=== PATIENT | male | born 1935 | race Caucasian/White ===

== ENCOUNTER 2021-05-31 10:24 | Emergency (ER) | payer MEDICARE, SELFPAY ==
--- NOTE | ~2021-05-31 | CT_ITS ---
EXAMINATION: CT HEAD WITHOUT CONTRAST CLINICAL INFORMATION: Fall on Eliquis. Head injury. COMPARISON: CT brain 04/23/2018. TECHNIQUE: Contiguous axial imaging was performed from the skull base to vertex without intravenous administration of contrast. This CT examination was performed using dose optimization techniques as appropriate, variously including the following: *Automated exposure control *Adjustment of mA and/or kV according to patient size (this includes techniques or standardized protocols for targeted exams where dose is matched to indication/reason for exam; i.e. extremities or head) *Use of iterative reconstruction technique DLP: 635 mGy-cm FINDINGS: There is no evidence of acute intracranial hemorrhage or territorial infarction. No abnormal mass effect or midline shift is seen. Shankar to white matter differentiation is well preserved. No extra-axial fluid collections are identified. The ventricles are normal in size. There is no abnormal attenuation within the brain parenchyma. There is a left frontal scalp hematoma without any underlying calvarial fracture. The hematoma is 9 mm thick and approximately 6.13 cm wide. The mastoid air cells and visualized portions of the paranasal sinuses are well aerated. CT/CT head/brain wo con IMPRESSION: No acute intracranial process seen. There is mild cerebral volume loss. There is a left frontal scalp hematoma without calvarial fracture.
[2021-05-31 11:18] VITALS: BP 159/85; PULSE 88; RESP 16; O2SAT 98; BMI 26.2
--- NOTE | 2021-05-31 11:41 | ECG_ITS ---
Test Reason : FALL Blood Pressure : / mmHG Vent. Rate : 081 BPM Atrial Rate : 117 BPM P-R Int : 000 ms QRS Dur : 084 ms QT Int : 378 ms P-R-T Axes : 000 -10 -31 degrees QTc Int : 439 ms Atrial fibrillation with premature ventricular or aberrantly conducted complexes Septal infarct , age undetermined Abnormal ECG When compared with ECG of 23-APR-2018 22:41, No significant change was found Referred By: Dago Lennon Electronically Signed By:Naga Camacho
[2021-05-31 11:44] VITALS: BP 159/85; PULSE 83; RESP 18; O2SAT 98
[2021-05-31] MEDS: Lidocaine HCl 2% PF/Epi 1:200 20 ML VIAL INFILTRATI (11:50)
[2021-05-31 12:16] LABS: MANUAL DIFF FLAG NO
[2021-05-31 12:20] LABS: Basophils Percent Auto 0.4 % (0-2); Eosinophils Percent Auto 0.1 % (0-4); Hematocrit 39.4 % (42-52); Imm Gran Abs Auto 0.03 X10*3/uL (0.00-0.03); Imm Gran Pct Auto 0.4 % (0.0-0.4); Lymphocytes Absolute Auto 0.4 X10*3/uL (1.2-4.9); Lymphocytes Percent Auto 4.5 % (20-40); Mean Corpuscular Hemoglobin 31.2 pg (27.0-33.0); Mean Corpuscular Volume 94.5 fL (80-98); Mean Platelet Volume 9.8 fL (9.4-12.4); Monocytes Absolute Auto 0.4 X10*3/uL (0.1-1.2); Monocytes Percent Auto 5.1 % (2-11); Neutrophils Absolute Auto 7.4 X10*3/uL (2.0-8.3); Neutrophils Percent Auto 89.5 % (45-73); Platelet Count 180 X10*3/uL (160-400); Red Blood Count 4.17 X10*6/uL (4.60-5.80); Red Cell Distribution Width 13.4 % (11.0-16.0); White Blood Count 8.2 X10*3/uL (4.8-10.8)
[2021-05-31 12:25] LABS: INTERNATIONAL NORM RATIO 1.1 (0.9-1.1); Prothrombin Time 12.7 SEC (9.9-13.0)
[2021-05-31 12:28] LABS: Partial Thromboplastin Time 35.5 SEC (24.1-38.0)
[2021-05-31 12:49] LABS: Alanine Aminotransferase 10 U/L (0-40); Albumin Level 3.6 g/dL (3.5-5.0); Alkaline Phosphatase 56 U/L (39-117); Anion Gap 13 (12-20); Aspartate Amino Transferase 19 U/L (5-37); Bilirubin Total 1.1 mg/dL (0.0-1.0); Blood Urea Nitrogen 25 mg/dL (9-16); Calcium 8.6 mg/dL (8.4-10.2); Carbon Dioxide 28 mmol/L (22-29); Chloride 106 mmol/L (96-108); Creatinine Clr Calc Pharmacy 44.6; Estimated Glomerular Filt Rate > 60; Glucose Random 134 mg/dL (60-115); Potassium 3.5 mmol/L (3.3-5.1); Sodium 143 mmol/L (135-145); Total Protein 6.5 g/dL (6.5-8.0)
--- NOTE | 2021-05-31 14:49 | ED_ITS ---
HPI - General Adult General Chief complaint: Fall Stated complaint: fall w/ head lac Time Seen by Provider: 05/31/21 10:37 Source: patient and family (Son) Mode of arrival: EMS Limitations: no limitations History of Present Illness HPI narrative: 86-year-old male who presents emergency department for evaluation of injuries from a fall that occurred at home. The information comes from the patient and the patient's son. The patient was walking down a hallway at home, using his cane. The patient lost his balance and struck the left side of his face and his nose on a picture frame. Patient did fall to the floor but had no loss of consciousness. The son heard the fall and found the patient on the floor. The patient is on Eliquis for atrial fibrillation. Patient had a laceration to his left eyebrow which was bleeding extensively at home. Patient was placed in a bulky pressure dressing by the paramedics the patient did bleed through his dressing in the emergency department. The patient had no complaints at the time of my interview. He denied headache, neck pain, chest pain, abdominal pain, back pain, extremity pain. He states that he was not ill prior to his fall at home. Related Data Allergies Allergy/AdvReac Type Severity Reaction Status Date / Time acetaminophen [From PERCOCET] AdvReac Unknown NAUSEA/VOMI Unverified 07/12/20 15:24 TING oxycodone [From PERCOCET] AdvReac Unknown NAUSEA/VOMI Unverified 07/12/20 15:24 TING Review of Systems Review of Systems: Yes all other systems are reviewed and are negative PMFSH Social History Social History Advance Directives: No Advance Directives Information Provided: Yes Advance Directives on File: No Physical Exam Vital Signs: Vital Signs: Last Vital Signs Temp 97.7 F 05/31/21 16:23 Pulse 82 05/31/21 16:23 Resp 20 05/31/21 16:23 BP 151/90 H 05/31/21 16:23 Pulse Ox 99 05/31/21 16:23 Body Mass Index 26.2 Const: Other: Very pleasant and cooperative elderly male, awake alert, patient has a bulky hand dressing covering a wound on his left hand, the patient has blood through the dressing. HENMT: Other: 3.0 cm elliptical laceration to the left eyebrow, he the laceration goes into the muscle layer, the patient is actively venous bleeding with no pulsatile bleeding noted Ears: external ears normal General nose exam: Other nasal findings present (2.5 cm C-shaped laceration to the nasal bridge, full skin thickness) Face and sinus: Yes normal facial exam Mouth: Normal oral and palatal mucosa present Throat: Yes posterior oropharynx normal Eyes: General: appearance normal, both eyes and all related structures Pupils: Equal, round and reactive pupils present Neck: Neck: Yes normal visual inspection, Yes no lymphadenopathy, Yes trachea midline and Yes supple Chest: Chest palpation & inspection: normal inspection of the chest and normal palpation of entire chest wall Resp: Effort & Inspection: normal respiratory effort and able to speak in complete sentences Auscultation: clear to auscultation bilaterally Cardio: Rate: regular rate Rhythm: regular rhythm Heart sounds: S1 norm al heart sound present, S2 normal heart sound present and no murmurs GI: Inspection: Yes normal to inspection Palpation (GI): Soft to palpation, nontender and no guarding Auscultation: normal bowel sounds : General: Yes no CVA tenderness Back/Spine/Pelvis: Back: no CVA tenderness Skin: General skin exam: no rashes or lesions noted Neuro: Cranial nerves: Yes CN's II-XII intact bilaterally and Yes Equal, round and reactive pupils present Cognition (Neuro): normal cognition Motor exam (neuro): 5/5 motor strength present throughout Extrem: General: Yes normal to inspection Psych: Appearance: grossly normal Speech and movement: Normal speech and movement present Affect: normal affect Attitude: cooperative Thought process: Normal thought process present Thought content: Normal thought content present Course Course Course Narrative: 86-year-old male who presents emergency department for evaluation of trip and fall with laceration to the left eyebrow and nasal bridge, the patient had significant bleeding from the left eyebrow laceration secondary to venous bleeding. This was exacerbated by the fact that the patient is taking Eliquis. I was able to stop the bleeding with IV lidocaine and with internal and external sutures to the laceration. Patient's nasal bridge laceration was repaired as well. CT scan of the head revealed no acute fracture or bleed. Patient's H&H was 13 and 39.4, there is no baseline H&H in the record. Coags were normal. Comprehensive metabolic panel revealed no significant abnormalities. The patient was discharged home in the care of his son. The patient was given verbal and printed instructions prior to discharge. The patient was advised to follow-up with his PCP in 2 days and to return to the emergency department if his symptoms get worse or if he develops any new symptoms that are concerning to him. Procedures Procedure Narrative Procedure Narrative: Laceration repairs: Laceration 1: 3.0 cm left eyebrow. The patient gave me informed verbal consent to repair the laceration. The laceration demonstrated active venous bleeding which was difficult to control secondary to Eliquis therapy. The laceration was prepped with Betadine. The laceration was then anesthetized with 5 cc of 2% lidocaine with epinephrine. I placed five 4.0 Vicryl sutures in the muscular layer in order to close the wound tightly, this significantly stop the bleeding. At in place seven 3.0 nylon sutures. The patient had no significant control the bleeding with this treatment. Bacitracin and pressure dressing was applied to the wound. Laceration 2: 2.5 cm C-shaped laceration to the nasal bridge. The patient giving informed verbal consent to repair laceration. The laceration was prepped with Betadine and anesthetized with 2% lidocaine with epinephrine. The wound was closed in 1 layer using 5.0 Vicryl Rapide sutures, total of 5 sutures were used to close the wound. Patient tolerated the procedure well. Medical Decision Making Lab Data Result diagrams: 05/31/21 12:06 05/31/21 12:06 Labs: Lab Results 05/31/21 05/31/21 05/31/21 Range/Units 12:06 12:06 12:06 WBC 8.2 (4.8-10.8) X10*3/uL RBC 4.17 L (4.60-5.80) X10*6/uL Hgb 13.0 L (14.0-18.0) g/dl Hct 39.4 L (42-52) % MCV 94.5 (80-98) fL MCH 31.2 (27.0-33.0) pg MCHC 33.0 (31.0-36.0) g/dl RDW 13.4 (11.0-16.0) % Plt Count 180 (160-400) X10*3/uL MPV 9.8 (9.4-12.4) fL Immature Gran % (Auto) 0.4 (0.0-0.4) % Neut % (Auto) 89.5 H (45-73) % Lymph % (Auto) 4.5 L (20-40) % [place] % (Auto) 5.1 (2-11) % Eos % (Auto) 0.1 (0-4) % Baso % (Auto) 0.4 (0-2) % Lymph # (Auto) 0.4 L (1.2-4.9) X10*3/uL [place] # (Auto) 0.4 (0.1-1.2) X10*3/uL Eos # (Auto) 0.0 (0.0-0.4) X10*3/uL Baso # (Auto) 0.0 (0.0-0.2) X10*3/uL Abs Immat Gran (auto) 0.03 (0.00-0.03) X10*3/uL Absolute Neuts (auto) 7.4 (2.0-8.3) X10*3/uL Absolute Nucleated RBC 0.000 (0.0-0.012) X10*3/uL Nucleated RBC % (auto) 0.0 (0.0-0.2) /100WBC PT 12.7 (9.9-13.0) SEC INR 1.1 (0.9-1.1) APTT 35.5 (24.1-38.0) SEC Sodium 143 (135-145) mmol/L Potassium 3.5 (3.3-5.1) mmol/L Chloride 106 (96-108) mmol/L Carbon Dioxide 28 (22-29) mmol/L Anion Gap 13 (12-20) BUN 25 H (9-16) mg/dL Creatinine 1.15 (0.5-1.4) mg/dL Estim Creat Clear Calc 44.6 Estimated GFR > 60 Random Glucose 134 H (60-115) mg/dL Calcium 8.6 (8.4-10.2) mg/dL Total Bilirubin 1.1 H (0.0-1.0) mg/dL AST 19 (5-37) U/L ALT 10 (0-40) U/L Alkaline Phosphatase 56 (39-117) U/L Total Protein 6.5 (6.5-8.0) g/dL Albumin 3.6 (3.5-5.0) g/dL Discharge Plan Discharge Clinical Impression: Fall, Head injury, Complex laceration of face, Laceration of nose Patient Disposition: Home, Self-Care Instructions: Laceration (ED), Head Injury (ED) Additional Instructions: The CT scan of your brain was normal, there is no fracture/broken bones or bleeding in your brain. Your blood work was unremarkable. The laceration of her left eyebrow was repaired with 5 internal stitches in 7 external stitches. The external stitches need to be removed by your doctor in 7-10 days. Apply bacitracin twice a day to this laceration and keep it covered with gauze, try to put pressure on this wound to help stop recurrence of bleeding. Your nose laceration was repaired with 5 Vicryl Rapide sutures. These are dissolvable sutures that should dissolved in 5-7 days. Apply bacitracin twice a day to this wound as well. Take Tylenol (acetaminophen) 500 mg pills, 2 pills every 4 to 6 hours as needed for pain. Follow-up with your doctor in 2 days. Please return to the emergency department if your symptoms get worse or if you develop any symptoms that are concerning to you. Interventions: ED Discharge Assessment Last Done: 05/31/21 17:00 Discharge Date/Time: 05/31/21 17:05
[2021-05-31] MEDS: Acetaminophen 325 MG TABLET 975 MG PO (14:57)
[2021-05-31 16:23] VITALS: BP 151/90; PULSE 82; RESP 20; TEMP 36.5; O2SAT 99
== END 2021-05-31 17:05 | disposition home or self-care (01) ==
PROVIDERS: Emergency Provider Emergency Medicine Emergency Medical Services; PCP Internal Medicine
DX: S01.112A Laceration without foreign body of left eyelid and periocular area, initial encounter (principal); S01.21XA Laceration without foreign body of nose, initial encounter; I48.91 Unspecified atrial fibrillation; Z79.01 Long term (current) use of anticoagulants; W18.30XA Fall on same level, unspecified, initial encounter; Y93.01 Activity, walking, marching and hiking; Y92.9 Unspecified place or not applicable; Y99.9 Unspecified external cause status
CPT/HCPCS: 12011; 12052; 36415; 70450; 80053; 85025; 85610; 85730; 93005; 99284

== ENCOUNTER 2022-07-30 00:18 | Inpatient (IN) | payer MEDICARE, SELFPAY ==
[2022-07-30] VITALS (11 sets, daily range): BP systolic 135–180; BP diastolic 90–120; PULSE 79–110; RESP 12–20; TEMP 36.2–37.1; O2SAT 93–97; BMI 24.8
--- NOTE | ~2022-07-30 | XR_ITS ---
EXAMINATION: XR CHEST CLINICAL INFORMATION: Dyspnea COMPARISON: 04/23/2018 TECHNIQUE: Frontal view of the chest was obtained. FINDINGS: Redemonstrated left-sided pacemaker lead tip overlying the right ventricle. Lung volumes are symmetric. Central vasculature appears slightly increased in prominence from prior. Mild patchy bibasilar airspace opacities. Small left pleural effusion is noted. Possible trace right pleural effusion. No evidence of pneumothorax. Cardiac silhouette appears mildly enlarged. Calcification is present at the aortic arch. No acute osseous findings are seen. XR/XR chest 1V IMPRESSION: Finding suggestive of developing vascular congestion. Small left pleural effusion. Mild bibasilar opacities could be due to atelectasis or developing consolidation in this setting.
--- NOTE | 2022-07-30 00:28 | ECG_ITS ---
Test Reason : SOB Blood Pressure : / mmHG Vent. Rate : 101 BPM Atrial Rate : 000 BPM P-R Int : 000 ms QRS Dur : 098 ms QT Int : 400 ms P-R-T Axes : 000 -17 -42 degrees QTc Int : 518 ms Atrial fibrillation with rapid ventricular response with premature ventricular or aberrantly conducted complexes T wave abnormality, consider lateral ischemia Abnormal ECG When compared with ECG of 31-MAY-2021 11:50, T wave inversion no longer evident in Inferior leads Nonspecific T wave abnormality no longer evident in Anterior leads T wave inversion now evident in Lateral leads QT has lengthened Heart rate has increased Referred By: Bryant Ayala Electronically Signed By:HIMANSHU TORO
--- NOTE | 2022-07-30 00:40 | ED.SOB ---
HPI - SOB/Dyspnea General Chief Complaint: Dyspnea Stated Complaint: sob Time Seen by Provider: 07/30/22 00:31 Source: family and EMS Mode of arrival: EMS Limitations: altered mental status History of Present Illness HPI Narrative: Patient history of dementia CHF atrial fibrillation Eliquis and furosemide, hypertension, hyperlipidemia status post pacemaker placement brought by EMS for increased shortness of breath usually patient gets short of breath and gets better but this time patient continued to be short of breath saw saturating 91% at room air and 96% on 2 L patient is not on oxygen at home no chest pain or palpitation when EMS arrived patient heart rate was in 200 range no chest pain Related Data Home Medications Medication Instructions Recorded Confirmed apixaban 5 mg tablet (Eliquis) 1 tab PO BID 07/30/22 07/30/22 aspirin 1 tab PO 1XD 07/30/22 07/30/22 atenolol 25 mg tablet 1 tab PO BID 07/30/22 07/30/22 ferrous gluconate 324 mg (38 mg 1 tab PO Q OTHER DAY 07/30/22 07/30/22 iron) tablet finasteride 5 mg tablet 1 tab PO DAILY 07/30/22 07/30/22 furosemide 40 mg tablet 1 tab PO 3XW 07/30/22 07/30/22 rosuvastatin 5 mg tablet 1 tab PO DAILY 07/30/22 07/30/22 sertraline 25 mg tablet 1 tab PO DAILY 07/30/22 07/30/22 tamsulosin 0.4 mg capsule 1 cap PO DAILY 07/30/22 07/30/22 Allergies Allergy/AdvReac Type Severity Reaction Status Date / Time acetaminophen [From PERCOCET] AdvReac Unknown NAUSEA/VOMI Unverified 07/12/20 15:24 TING oxycodone [From PERCOCET] AdvReac Unknown NAUSEA/VOMI Unverified 07/12/20 15:24 TING Review of Systems Review of Systems: Yes all other systems are reviewed and are negative PMFSH Social History Social History Alcohol intake: never Patient Tobacco Use Status: Never used Tobacco Use of substances other than those prescribed or required for medical reasons: No Advance Directives: No Advance Directives Information Provided: Yes Physical Exam Vital Signs: Vital Signs: Last Vital Signs Temp 98.7 F 07/30/22 01:17 Pulse 98 07/30/22 06:00 Resp 12 07/30/22 06:00 BP 158/112 H 07/30/22 01:17 Pulse Ox 95 07/30/22 06:00 O2 Del Method 07/30/22 06:00 O2 Flow Rate 2 07/30/22 06:00 BMI result Body Mass Index 24.8 Appearance: Alert. Oriented X2. No acute distress. Eyes: PERRLA, No Nystagmus ENT: Pharynx normal. Oral Mucosa moist Neck: Normal inspection. Neck supple. CVS: Normal heart rate and rhythm. Pulses normal. Respiratory: No respiratory distress. Equal air entry bilateral, no wheezing/rales/rhonchi Abdomen: Soft and nontender. Bowel sounds are present, no mass palpable, no CVA tenderness Skin: Skin warm and dry. Normal skin color. Normal skin turgor. Extremities: No lower extremity edema. No calf tenderness Neuro: Oriented X 2. No motor deficit. No sensory deficit.No cerebellar signs , cranial nerves II-XII intact MDM - SOB/Dyspnea MDM Narrative Medical decision making narrative: 06:00 Patient with elevated BNP had tachycardia episode at home likely AFib with RVR increased delta cardiac enzymes admit patient for IV diuresis and further evaluation by [facility] patient is on atenolol twice daily Differential Diagnosis Differential diagnosis: Likely congestive heart failure Lab Data Attestation: I reviewed the patient's lab results. Result diagrams: 07/30/22 00:46 07/30/22 00:46 Labs: Lab Results 07/30/22 07/30/22 07/30/22 Range/Units 00:46 00:46 00:46 WBC 6.5 (4.8-10.8) X10*3/uL RBC 4.17 L (4.60-5.80) X10*6/uL Hgb 12.7 L (14.0-18.0) g/dl Hct 37.7 L (42.0-52.0) % MCV 90.4 (80.0-98.0) fL MCH 30.5 (27.0-33.0) pg MCHC 33.7 (31.0-36.0) g/dl RDW 15.3 (11.0-16.0) % Plt Count 182 (160-400) X10*3/uL MPV 10.0 (9.4-12.4) fL Immature Gran % (Auto) 0.2 (0.0-0.4) % Neut % (Auto) 85.9 H (45-73) % Lymph % (Auto) 6.8 L (20-40) % [place] % (Auto) 5.9 (2-11) % Eos % (Auto) 0.6 (0-4) % Baso % (Auto) 0.6 (0-2) % Lymph # (Auto) 0.4 L (1.2-4.9) X10*3/uL [place] # (Auto) 0.4 (0.1-1.2) X10*3/uL Eos # (Auto) 0.0 (0.0-0.4) X10*3/uL Baso # (Auto) 0.0 (0.0-0.2) X10*3/uL Abs Immat Gran (auto) 0.01 (0.00-0.03) X10*3/uL Absolute Neuts (auto) 5.5 (2.0-8.3) x10*3/uL Absolute Nucleated RBC 0.000 (0.0-0.012) X10*3/uL Nucleated RBC % (auto) 0.0 (0.0-0.2) /100WBC Sodium 143 (135-145) mmol/L Potassium 4.4 D (3.3-5.1) mmol/L Chloride 107 (96-108) mmol/L Carbon Dioxide 21 L (22-29) mmol/L Anion Gap 19 (12-20) BUN 25 H (9-16) mg/dL Creatinine 1.14 (0.5-1.4) mg/dL Estim Creat Clear Calc 50.1 Estimated GFR > 60 Random Glucose 164 H (60-115) mg/dL Calcium 8.8 (8.4-10.2) mg/dL Troponin I High Sens 41.1 H (<3.5-35.0) ng/L B-Natriuretic Peptide 3351 H (<100) pg/mL 07/30/22 Range/Units 05:03 WBC (4.8-10.8) X10*3/uL RBC (4.60-5.80) X10*6/uL Hgb (14.0-18.0) g/dl Hct (42.0-52.0) % MCV (80.0-98.0) fL MCH (27.0-33.0) pg MCHC (31.0-36.0) g/dl RDW (11.0-16.0) % Plt Count (160-400) X10*3/uL MPV (9.4-12.4) fL Immature Gran % (Auto) (0.0-0.4) % Neut % (Auto) (45-73) % Lymph % (Auto) (20-40) % [place] % (Auto) (2-11) % Eos % (Auto) (0-4) % Baso % (Auto) (0-2) % Lymph # (Auto) (1.2-4.9) X10*3/uL [place] # (Auto) (0.1-1.2) X10*3/uL Eos # (Auto) (0.0-0.4) X10*3/uL Baso # (Auto) (0.0-0.2) X10*3/uL Abs Immat Gran (auto) (0.00-0.03) X10*3/uL Absolute Neuts (auto) (2.0-8.3) x10*3/uL Absolute Nucleated RBC (0.0-0.012) X10*3/uL Nucleated RBC % (auto) (0.0-0.2) /100WBC Sodium (135-145) mmol/L Potassium (3.3-5.1) mmol/L Chloride (96-108) mmol/L Carbon Dioxide (22-29) mmol/L Anion Gap (12-20) BUN (9-16) mg/dL Creatinine (0.5-1.4) mg/dL Estim Creat Clear Calc Estimated GFR Random Glucose (60-115) mg/dL Calcium (8.4-10.2) mg/dL Troponin I High Sens 69.0 H D (<3.5-35.0) ng/L B-Natriuretic Peptide (<100) pg/mL ECG Data Attestation: I personally reviewed and interpreted this ECG as follows: Interpretation: AFib fib with a ventricular rate of 101 nonspecific STT wave changes no acute ischemia Discharge Plan Discharge Clinical Impression: Congestive heart failure, Atrial fibrillation, Non-STEMI (non-ST elevated myocardial infarction) Patient Disposition: Admitted As Inpatient
[2022-07-30 00:53] LABS: MANUAL DIFF FLAG NO
[2022-07-30 00:55] LABS: Basophils Percent Auto 0.6 % (0-2); Eosinophils Percent Auto 0.6 % (0-4); Hematocrit 37.7 % (42.0-52.0); Hemoglobin 12.7 g/dl (14.0-18.0); Imm Gran Abs Auto 0.01 X10*3/uL (0.00-0.03); Imm Gran Pct Auto 0.2 % (0.0-0.4); Lymphocytes Absolute Auto 0.4 X10*3/uL (1.2-4.9); Lymphocytes Percent Auto 6.8 % (20-40); Mean Corpuscular HGB Conc 33.7 g/dl (31.0-36.0); Mean Corpuscular Hemoglobin 30.5 pg (27.0-33.0); Mean Corpuscular Volume 90.4 fL (80.0-98.0); Monocytes Absolute Auto 0.4 X10*3/uL (0.1-1.2); Monocytes Percent Auto 5.9 % (2-11); Neutrophils Absolute Auto 5.5 x10*3/uL (2.0-8.3); Neutrophils Percent Auto 85.9 % (45-73); Platelet Count 182 X10*3/uL (160-400); Red Blood Count 4.17 X10*6/uL (4.60-5.80); Red Cell Distribution Width 15.3 % (11.0-16.0); White Blood Count 6.5 X10*3/uL (4.8-10.8)
[2022-07-30 01:10] LABS: Anion Gap 19 (12-20); Blood Urea Nitrogen 25 mg/dL (9-16); Calcium 8.8 mg/dL (8.4-10.2); Carbon Dioxide 21 mmol/L (22-29); Chloride 107 mmol/L (96-108); Creatinine Clr Calc Pharmacy 50.1; Estimated Glomerular Filt Rate > 60; Glucose Random 164 mg/dL (60-115); Potassium 4.4 mmol/L (3.3-5.1); Sodium 143 mmol/L (135-145)
[2022-07-30 01:18] LABS: B Type Natriuretic Peptide 3351 pg/mL (<100); Troponin-I High Sensitivity 41.1 ng/L (<3.5-35.0)
--- OUTSIDE RECORDS SUMMARY | 2022-07-30 01:24 | XMS_ITS | Continuity of Care Document ---
:1935 Author Organization [facility] Address [address] [place] [id number]- Care Team Providers Name Role Phone Anmol De La Rosa MD Primary Care Physician [place] [facility] [place](s): 06/18/22 - 07/18/22 [facility] [address] [place] [id number]- Attending Physician: Cee Bronson Admitting Physician: Cee Bronson Referring Physician: Cee Bronson Allergies, Adverse Reactions, Alerts Substance Reaction Severity Status OxyContin severe nausea Active Percocet 5/325 Active Medications apixaban 2.5 mg oral tablet 1 tablet = 2.5 mg, By Mouth, 2 times a day, 0 Refills, Maintenance, 05/04/20 11:06:00 EDT, Tablet Start Date: 05/04/20 Status: Orderedaspirin 81 mg oral delayed release tablet 81 mg, By Mouth, Daily, Refills 0, Maintenance, 05/04/20 11:07:00 EDT Start Date: 05/04/20 Status: Orderedatenolol 25 mg oral tablet 1 tablet = 25 mg, By Mouth, 2 times a day, # 30 tablet, 0 Refills, Maintenance, 09/28/15 9:08:17, Tablet Start Date: 09/28/15 Status: OrderedAugmentin 875 Tablet 1, tablet, By Mouth, 2 times a day, Maintenance, 05/04/20 11:06:00 EDT Start Date: 05/04/20 Status: OrderedCentrum Silver Men's By Mouth, Daily, 0 Refills, Maintenance, 03/26/20 7:17:00 EDT Start Date: 03/26/20 Status: OrderedCrestor 5 mg oral tablet 1 tablet = 5 mg, By Mouth, Daily, # 30 tablet, 0 Refills, Maintenance, 09/28/15 9:08:56, Tablet Start Date: 09/28/15 Status: OrderedFinasteride Tablet = 5 mg, By Mouth, Daily, 0 Refills, Maintenance Start Date: 03/10/13 Status: Orderedfurosemide 40 mg oral tablet 20 mg, 0.5, tablet, By Mouth, Daily, # 30 tablet, Refills 0, Maintenance, 03/07/20 13:44:00 EDT Start Date: 03/07/20 Status: OrderedMirtazapine = 7.5 mg, By Mouth, Daily at bedtime, 0 Refills, Maintenance, 10/01/17 16:25:24 Start Date: 10/01/17 Status: Orderedtamsulosin 0.4 mg oral capsule 1 capsule = 0.4 mg, By Mouth, Daily before dinner, 0 Refills, Maintenance Start Date: 08/26/10 Status: OrderedVitamin B12 500 mcg oral tablet 1 tablet = 500 mcg, By Mouth, Daily, # 30 tablet, 0 Refills, Maintenance, 03/26/20 7:17:00 EDT, Tablet Start Date: 03/26/20 Status: Ordered Social History Social History Type Response Smoking Status Former smoker; Tobacco user in household: No; Other: quit smoking 1975; entered on: 09/28/15 Sex Care Team PersonnelName: Anmol De La Rosa MD Address: [address] [facility] [place], [place] [address]
--- OUTSIDE RECORDS SUMMARY | 2022-07-30 01:24 | XMS_ITS | Continuity of Care Document ---
:1935 Author Organization [facility] Address [address] [place] [id number]- Care Team Providers Name Role Phone Anmol De La Rosa MD [id number]/23/21 - 08/03/21 [facility] [address] [place] [id number]- Attending Physician: Doyle Woody MD Admitting Physician: Doyle Woody MD Referring Physician: Anmol De La Rosa MD Allergies, Adverse Reactions, Alerts Substance Reaction Severity [...]
--- OUTSIDE RECORDS SUMMARY | 2022-07-30 01:24 | XMS_ITS | Continuity of Care Document ---
:1935 Author Organization [facility] Address [address] [place] [address]- Care Team Providers Name Role Phone Anmol De La Rosa MD Primary Care Physician Encounter [facility] [place] Date(s): 03/26/20 - 03/26/[address] [address] [facility] Discharge Disposition: A-D/C Home Attending Physician: Doyle Woody MD Admitting Physician: Doyle Woody MD Referring Physician: Doyle Woody MD Allergies, Adverse Reactions, Alerts Substance Reaction Severity Status OxyContin severe nausea Active Percocet 5/325 Active Medications atenolol 25 mg oral tablet 1 tablet = 25 mg, By Mouth, 2 times a day, # 30 tablet, 0 Refills, Maintenance, 09/28/15 9:08:17, Tablet Start Date: 09/28/15 Status: OrderedBenicar 20 mg oral tablet 1 tablet = 20 mg, By Mouth, Daily, # 30 tablet, 0 Refills, Maintenance, 09/28/15 9:08:40, Tablet Start Date: 09/28/15 Status: OrderedCentrum Silver Men's By Mouth, Daily, 0 Refills, Maintenance, 03/26/20 7:17:00 EDT Start Date: 03/26/20 Status: Orderedcephalexin monohydrate 500 mg oral capsule = 500 mg, By Mouth, Every 12 hours, # 10 tablet, 0 Refills, Soft Stop, 02/27/18 2:48:47 EDT, Capsule Start Date: 02/27/18 Stop Date: 03/04/18 Status: OrderedCrestor 5 mg oral tablet 1 tablet = 5 mg, By Mouth, Daily, # 30 tablet, 0 Refills, Maintenance, 09/28/15 9:08:56, Tablet Start Date: 09/28/15 Status: OrderedFinasteride Tablet = 5 mg, By Mouth, Daily, 0 Refills, Maintenance Start Date: 03/10/13 Status: Orderedfurosemide 40 mg oral tablet 40 mg, 1, tablet, By Mouth, Daily, # 30 tablet, [...] 7:17:00 EDT, Tablet Start Date: 03/26/20 Status: Orderedwarfarin 7.5 mg oral tablet 1 tablet = 7.5 mg, 0 Refills, Maintenance, 10/01/17 16:24:51 Start Date: 10/01/17 Status: Ordered Vital Signs Most recent to oldest [Reference Range]: 1 Height 182.8 cm (03/26/20 7:14 AM) Weight 78.4 kg (03/26/20 7:14 AM) Oxygen Saturation [94-100 %] 98 % (03/26/20 6:50 AM) Pulse Rate [55-90 bpm] 91 bpm *H* (03/26/20 6:50 AM) Blood Pressure [90-138/55-84 mm Hg] 169/85 mm Hg *H* (03/26/20 6:50 AM) Respiratory Rate [16-30 br/min] 16 br/min (03/26/20 6:50 AM) Temperature [96.8-100.4 DegF] 98.2 DegF (03/26/20 6:50 AM) Mode of Delivery (Oxygen) Room air (03/26/20 6:50 AM) Blood pressure sites Arm, right (03/26/20 6:50 AM) Temperature Route Oral (03/26/20 6:50 AM) Dry Weight 78.4 kg (03/26/20 7:14 AM) Weight Obtained Via Bed scale (03/26/20 7:14 AM) Social History Social History Type Response Smoking Status Former smoker; Tobacco user in household: No; Other: quit smoking 1975; entered on: 09/28/15 Sex
--- OUTSIDE RECORDS SUMMARY | 2022-07-30 01:24 | XMS_ITS | Continuity of Care Document ---
:1935 Author Organization [facility] Address [address] [place] [address]- Care Team Providers Name Role Phone Anmol De La Rosa MD [id number] Date[facility]s): 08/15/20 - 12/13/20 [facility] [address] [place] [id number] Attending Physician: Doyle Woody MD Admitting Physician: [...]
--- OUTSIDE RECORDS SUMMARY | 2022-07-30 01:24 | XMS_ITS | Continuity of Care Document ---
:1935 Author Organization [facility] Address [address] [place] [address]- Care Team Providers Name Role Phone Anmol De La Rosa MD Primary Care Physician Encounter [facility] Date(s): 01/16/20 - 03/02/20 [facility] [address] [place] [address]- [facility] Attending Physician: Doyle Woody MD Admitting Physician: [...] 09/28/15 9:08:40, Tablet Start Date: 09/28/15 Status: Orderedcephalexin monohydrate 500 mg oral capsule [...] 0 Refills, Maintenance Start Date: 03/10/13 Status: OrderedMirtazapine = 7.5 mg, By Mouth, Daily at bedtime, 0 Refills, Maintenance, 10/01/17 16:25:24 Start Date: 10/01/17 Status: Orderedtamsulosin 0.4 mg oral capsule 1 capsule = 0.4 mg, By Mouth, Daily before dinner, 0 Refills, Maintenance Start Date: 08/26/10 Status: Orderedwarfarin 7.5 mg oral tablet 1 tablet = 7.5 mg, 0 Refills, Maintenance, 10/01/17 16:24:51 Start Date: 10/01/17 Status: Ordered Social History Social History Type Response Smoking Status Former smoker; Tobacco user in household: No; Other: quit smoking 1975; entered on: 09/28/15 Sex
--- OUTSIDE RECORDS SUMMARY | 2022-07-30 01:24 | XMS_ITS | Continuity of Care Document ---
:1935 Author Organization [facility] Address [address] [place] [address]- Care Team Providers Name Role Phone Anmol De La Rosa MD [id number] - 12[facility]29[facility] [address] [place] [address] Attending Physician: Doyle Woody MD Admitting Physician: [...]
--- OUTSIDE RECORDS SUMMARY | 2022-07-30 01:24 | XMS_ITS | Continuity of Care Document ---
:1935 Author Organization [facility] Address [address] [place] [address]- Care Team Providers Name Role Phone Anmol De La Rosa MD Primary Care Physician [place] [facility] [place] 11/24/19 - 02/24/20 [facility] [address] [place] [address]- [facility] Attending Physician: Doyle Woody MD Admitting [...]
--- OUTSIDE RECORDS SUMMARY | 2022-07-30 01:24 | XMS_ITS | Continuity of Care Document ---
:1935 Author Organization [facility] Address [address] [place] [address]- Care Team Providers Name Role Phone Anmol De La Rosa MD [id number] - 08/03/21 [facility] [address] [place] [address]- Attending Physician: Cee Bronson Admitting Physician: Cee Bronson Referring Physician: Cee Bronson Referring Physician: Carmen Cedillo Allergies, Adverse Reactions, Alerts Substance Reaction Severity [...]
--- OUTSIDE RECORDS SUMMARY | 2022-07-30 01:24 | XMS_ITS | Continuity of Care Document ---
:1935 Author Organization [facility] Address [address] [place] [address]- Care Team Providers Name Role Phone Anmol De La Rosa MD Primary Care Physician [place] [facility] [place] 02/22/21 - 03/24/21 [facility] [address] [place] [id number] Allergies, Adverse Reactions, Alerts Substance Reaction Severity [...]
--- OUTSIDE RECORDS SUMMARY | 2022-07-30 01:24 | XMS_ITS | Continuity of Care Document ---
:1935 Author Organization [facility] Address [address] [place] [address]- Care Team Providers Name Role Phone Anmol De La Rosa MD Primary Care Physician Encounter [facility] Date(s): 01/24/20 - 04/06/20 [facility] [address] [place] [address]- [facility] Attending Physician: Doyle Woody MD Admitting Physician: [...] Refills, Maintenance, 09/28/15 9:08:56, Tablet Start Date: 12/4/15 Status: OrderedFinasteride Tablet = 5 mg, By [...]
--- OUTSIDE RECORDS SUMMARY | 2022-07-30 01:24 | XMS_ITS | Continuity of Care Document ---
:1935 Author Organization [facility] Address [address] [place] [address]- Care Team Providers Name Role Phone Anmol De La Rosa MD Primary Care Physician Encounter [facility] Date(s): 08/31/19 - 12/03/19 [facility] [address] [place] [address]- [facility] Attending Physician: Doyle Woody MD Admitting [...]
--- OUTSIDE RECORDS SUMMARY | 2022-07-30 01:24 | XMS_ITS | Continuity of Care Document ---
:1935 Author Organization [facility] Address [address] [place] [address]- Care Team Providers Name Role Phone Anmol De La Rosa MD Primary Care Physician [place] [facility] Date(s): 04/30/20 - 05/04/[address] [phone]- [facility] Encounter Diagnosis Facial droop due to acute cerebrovascular accident (CVA) (Final) - 04/30/20 Discharge Disposition: A-Transfer SNF Attending Physician: Julieth Pratt MD Admitting Physician: Dirk Iniguez MD Referring Physician: Not on Staff, Referring MD Allergies, Adverse Reactions, Alerts Substance Reaction [...] EDT, Tablet Start Date: 03/26/20 Status: Ordered Results Orders for Microbiology Reports Name Date Urine Culture (URINE CULTURE) 04/30/20 Microbiology Reports TEST:Urine Culture STATUS:Auth (Verified) BODY SITE: SOURCE:URINE COLLECTED DATE/TIME:04/30/20 7:45 PMUrine Culture SPECIMEN DESCRIPTION : URINE SPECIAL REQUESTS : NONE CULTURE : >100,000 COL/ML ENTEROCOCCUS FAECALIS 10-50,000 COL/ML ESCHERICHIA COLI REPORT STATUS : FINAL 05/03/2020 ORGANISM 10-50,000 COL/ML ESCHERICHIA COLI METHOD MIN. INHIB. CONC. (MCG/ML) AMPICILLIN SUSCEPTIBLE AMPICILLIN/SULBACTAM SUSCEPTIBLE AMOXICILLIN/CLAVULAN SUSCEPTIBLE CEFAZOLIN SUSCEPTIBLE CEFEPIME SUSCEPTIBLE CEFTRIAXONE SUSCEPTIBLE CIPROFLOXACIN SUSCEPTIBLE ERTAPENEM SUSCEPTIBLE GENTAMICIN SUSCEPTIBLE LEVOFLOXACIN SUSCEPTIBLE MEROPENEM SUSCEPTIBLE NITROFURANTOIN SUSCEPTIBLE PIPERACILLIN/TAZOBAC SUSCEPTIBLE TRIMETH/SULFAMETHOX SUSCEPTIBLE TETRACYCLINE SUSCEPTIBLE ORGANISM >100,000 COL/ML ENTEROCOCCUS FAECALIS METHOD MIN. INHIB. CONC. (MCG/ML) AMPICILLIN SUSCEPTIBLE CIPROFLOXACIN RESISTANT NITROFURANTOIN SUSCEPTIBLE LEVOFLOXACIN RESISTANT VANCOMYCIN SUSCEPTIBLE TETRACYCLINE RESISTANT GENTAMICIN SYNERGY ACTIVE IN SYNERGY STREPTOMYCIN SYNERGY NOT ACTIVE IN SYNERGYRadiology Reports Exam Date Time Procedure Performing Provider Status 04/30/20 2:32 PM Chest Portable Ascencion Proctor ([facility] ed) Notes:(Chest Portable) Reason For Exam: Stroke;Other:RESULT: Chest Portable Chest Portable AP upright at 2:12 PM INDICATION: Stroke; Clinical Question(s): CHF; Hx of Present Illness: stroke alert / CHF COMPARISON: 07/06/2017 FINDINGS: LINES AND TUBES: Single lead left subclavian pacer wire is intact. LUNGS AND PLEURA: Clear lungs. Normal pulmonary vascularity. No pleural effusion. No pneumothorax. HEART, MEDIASTINUM AND GETACHEW: Mild prominence of the cardiac silhouette. Aorta is mildly calcified. BONES AND SOFT TISSUES: No acute abnormality. Suture anchors right humeral head. IMPRESSION: No evidence of acute abnormality. WSN: [id number] Ordering Physician: Fred Branham MD Dictated By: Ervin Urena MD Dictated Date/Time: 04/30/20 2:36 pm Reviewed By: Ervin Urena MD Signed By: Ervin Urena MD Signed Date/Time: 04/30/20 2:36 pm Transcribed By: THIAGO Transcribed Date/Time: 04/30/20 2:35 pm Vital Signs Most recent to oldest 1 2 3 [Reference Range]: Height 175 cm 175 cm 175 cm (05/04/20 10:48 AM) (05/04/20 7:58 AM) (05/02/20 11: 48 PM) Weight 77.7 kg (05/01/20 3:40 PM) Oxygen Saturation [94-100 97 % 100 % 98 % %] (05/04/20 10:48 AM) (05/04/20 7:58 AM) (05/04/20 3: 55 AM) Pulse Rate [55-90 bpm] 93 bpm 73 bpm 73 bpm *H* (05/04/20 9:22 AM) (05/04/20 7:58 AM) (05/04/20 10:48 AM) Body Mass Index 25.37 [18.5-24.99] *H* (05/01/20 3:40 PM) Blood Pressure 116/83 mm Hg 136/85 mm Hg 136/85 mm Hg [90-138/55-84 mm Hg] (05/04/20 10:48 AM) (05/04/20 9:22 AM) ( 7:58 AM) Respiratory Rate [16-30 17 br/min 17 br/min 18 br/mi n br/min] (05/04/20 10:48 AM) (05/04/20 7:58 AM) (05/04/20 3: 55 AM) Temperature [96.8-100.4 97.5 DegF 98.0 DegF 98.0 Deg F DegF] (05/04/20 10:48 AM) (05/04/20 7:58 AM) (05/04/20 3: 55 AM) Liters per Minute 0 L/min 0 L/min 0 L/min (05/04/20 3:55 AM) (05/03/20 11:38 PM) (05/03/20 8:07 PM) Mode of Delivery (Oxygen) Room air Room air Room a ir (05/04/20 10:48 AM) (05/04/20 7:58 AM) (05/04/20 3: 55 AM) Blood pressure sites Arm, left Arm, right Arm, left (05/04/20 10:48 AM) (05/04/20 7:58 AM) (05/04/20 3: 55 AM) Temperature Route Temporal Temporal Temporal (05/04/20 10:48 AM) (05/04/20 7:58 AM) (05/04/20 3: 55 AM) Dry Weight 77.7 kg (05/01/20 3:40 PM) Weight Obtained Via Patient/family stated (05/01/20 3:40 PM) Dry Weight Obtained Via Patient/family stated (05/01/20 3:40 PM) Social History Social History Type Response Smoking Status Former smoker; Tobacco user in household: No; Other: quit smoking 1975; entered on: 09/28/15 Sex
--- OUTSIDE RECORDS SUMMARY | 2022-07-30 01:24 | XMS_ITS | Continuity of Care Document ---
:1935 Author Organization [facility] Address [address] [place] [address]- Care Team Providers Name Role Phone Anmol De La Rosa MD Primary Care Physician Encounter [facility] Date(s): 02/01/20 - 02/11/20 [facility] [address] [place] [address]- [facility] Attending Physician: Cee Bronson Admitting Physician: AdmtrCee Referring Physician: Admtr, ArFrederick Allergies, Adverse Reactions, Alerts Substance Reaction Severity [...]
--- OUTSIDE RECORDS SUMMARY | 2022-07-30 01:24 | XMS_ITS | Continuity of Care Document ---
:1935 Author Organization [facility] Address [address] [place] [address]- Care Team Providers Name Role Phone Anmol De La Rosa MD Primary Care Physician [place] [facility] [place] 11/29/20 - 12/29/20 [facility] [address] [place] [id number] Attending Physician: Cee Bronson Admitting Physician: Cee Bronson Referring Physician: AdmtrCee Allergies, Adverse Reactions, Alerts Substance Reaction Severity [...]
--- OUTSIDE RECORDS SUMMARY | 2022-07-30 01:24 | XMS_ITS | Continuity of Care Document ---
:1935 Author Organization [facility] Address [address] [place] [address]- Care Team Providers Name Role Phone Anmol De La Rosa MD Primary Care Physician Encounter [facility] Date(s): 04/22/21 - 05/22/21 [facility] [address] [place] [id number] Allergies, Adverse Reactions, Alerts Substance [...]
--- OUTSIDE RECORDS SUMMARY | 2022-07-30 01:24 | XMS_ITS | Continuity of Care Document ---
:1935 Author Organization [facility] Address [address] [place] [address]- Care Team Providers Name Role Phone Anmol De La Rosa MD Primary Care Physician [place] [facility] [place] 06/17/19 - 10/15/19 [facility] [address] [place] [address]- [facility] Attending Physician: Doyle Woody MD Admitting Physician: Doyle Woody MD Allergies, Adverse Reactions, [...]
--- OUTSIDE RECORDS SUMMARY | 2022-07-30 01:24 | XMS_ITS | Continuity of Care Document ---
:1935 Author Organization [facility] Address [address] [place] [address]- Care Team Providers Name Role Phone Anmol De La Rosa MD Primary Care Physician Encounter [facility] [place] Date(s): 09/18/21 - 01/16/22 [facility] [address] [place] [address]- Attending Physician: Doyle Woody MD Admitting Physician: [...]
--- OUTSIDE RECORDS SUMMARY | 2022-07-30 01:24 | XMS_ITS | Continuity of Care Document ---
:1935 Author Organization [facility] Address [address] [place] [address]- Care Team Providers Name Role Phone Anmol De La Rosa MD Primary Care Physician [place] [facility] [place] Date(s): 03/21/22 - 07/18/22 [facility] [address] [place] [address]- Attending Physician: Doyle Woody MD Admitting Physician: [...] PersonnelName: Anmol De La Rosa MD Address: [address] [place] [address] Internal Medicine [address]
--- OUTSIDE RECORDS SUMMARY | 2022-07-30 01:24 | XMS_ITS | Continuity of Care Document ---
:1935 Author Organization [facility] Address [address] [place] [address]- Care Team Providers Name Role Phone Anmol De La Rosa MD Primary Care Physician En[place] [facility] Date(s): 03/07/20 - 04/06/20 [facility] [address] [place] [address]- [facility] Attending Physician: Cee Bronson Admitting Physician: AdmtrCee Referring Physician: Admtr ArFrederick Allergies, Adverse Reactions, Alerts Substance Reaction [...]
[2022-07-30] MEDS: Furosemide 20 MG/2 ML VIAL IVPUSH ×2 (03:39→18:03)
[2022-07-30] MEDS: Nitroglycerin 2 % Oint 1 GM Packet 0.5 INCH TRANSDERMA (06:35)
[2022-07-30 06:59] LABS: COVID-19 Test Negative (Negative); IDNOW Serial# 9DB6401D
--- NOTE | 2022-07-30 07:36 | PHA.MEDREC ---
Pharmacy Consult ? Medication Reconciliation Pharmacy has completed the medication reconciliation. Reviewed med rec done by nursing
[2022-07-30] MEDS: Apixaban 5 MG TABLET PO ×2 (12:47→21:02)
[2022-07-30] MEDS: atenoloL 25 MG TABLET PO ×2 (12:47→21:02)
--- NOTE | 2022-07-30 16:23 | PM.IMHP ---
History of Present Illness Date of Service: 07/30/22 Attending physician on admission: Dariel Roy Chief Complaint: Shortness of breath 87-year-old gentleman with past medical history significant for advanced dementia, atrial fibrillation on Eliquis, status post pacemaker placement, history of congestive heart failure with unknown EF brought into [facility] with acute onset of shortness of breath patient is unable to provide meaningful history due to advanced dementia, therefore called patient's son Roman Haynes he is the healthcare proxy and lives with patient according to him patient threw up his Cereal yesterday morning which she fell secondary to history of dry mouth recently started on biotin mouthwash, rest of the day he was doing fine at around 20:00 last night patient went to bed since he was feeling tired and at 10:30 son noted that patient is short of breath he denies associated fever chills no chest discomfort no palpitations but since his symptoms persisted he brought him to [facility] in the ER patient was noted to be in atrial fibrillation with rapid ventricular response his BNP was elevated 3351, his troponin was 16 9 chest x-ray showed small left pleural effusion and pulmonary congestion patient treated in the emergency room with 1 dose of IV Lasix 20 mg and nitro patch, at present patient is feeling better. Review of Systems Review of Systems: Yes Unobtainable due to mental status PMFSH Functional capacity: independent ambulation Pertinent family history: Mother of a stroke Social History Alcohol intake: never Patient Tobacco Use Status: Never used Tobacco Use of substances other than those prescribed or required for medical reasons: No Advance Directives: No Advance Directives Information Provided: Yes Meds Allergies Allergy/AdvReac Type Severity Reaction Status Date / Time acetaminophen [From PERCOCET] AdvReac Unknown NAUSEA/VOMI Unverified 07/12/20 15:24 TING oxycodone [From PERCOCET] AdvReac Unknown NAUSEA/VOMI Unverified 07/12/20 15:24 TING Active Medications: Current Medications Acetaminophen (Acetaminophen 325 Mg Tablet) 650 mg PO Q6H PRN PRN Reason: Pain, Mild (Pain Scale 1-3) Apixaban (Apixaban 5 Mg Tablet) 5 mg PO BID CÉSAR Last Admin: 07/30/22 12:47 Dose: 5 mg Aspirin (Aspirin Enteric Coated 81 Mg Tablet.) 81 mg PO DAILY [facility] Atenolol (Atenolol 25 Mg Tablet) 25 mg PO BID [facility]; Protocol Last Admin: 07/30/22 12:47 Dose: 25 mg Atorvastatin Calcium (Atorvastatin Calcium 10 Mg Tablet) 10 mg PO BEDTIME CÉSAR Finasteride (Finasteride 5 Mg Tablet) 5 mg PO DAILY [facility] Furosemide (Furosemide 20 Mg/2 Ml Vial) 20 mg IVPUSH BID@0900,1800 [facility]; Protocol Melatonin (Melatonin 3 Mg Tablet) 3 mg PO BEDTIME PRN PRN Reason: Insomnia Ondansetron HCl (Ondansetron Hcl 4 Mg/2 Ml Vial) 4 mg IVPUSH Q8H PRN PRN Reason: Nausea and Vomiting Sertraline HCl (Sertraline Hcl 25 Mg Tablet) 25 mg PO DAILY [facility] Sodium Chloride (0.9 % Sodium Chloride Flush 3 Ml Syringe) 3 ml IVFLUSH QSHIFT [facility] Tamsulosin HCl (Tamsulosin Hcl 0.4 Mg Capsule) 0.4 mg PO DAILY [facility] Home Medications Medication Instructions Recorded Confirmed Last Taken Type apixaban 5 mg tablet (Eliquis) 1 tab PO BID 07/30/22 07/30/22 07/29/22 History aspirin 81 mg tablet,delayed 81 mg PO DAILY 07/30/22 07/30/22 07/29/22 History release atenolol 25 mg tablet 1 tab PO BID 07/30/22 07/30/22 07/29/22 History ferrous gluconate 324 mg (38 mg 1 tab PO Q OTHER DAY 07/30/22 07/30/22 07/29/22 History iron) tablet finasteride 5 mg tablet 1 tab PO DAILY 07/30/22 07/30/22 07/29/22 History furosemide 40 mg tablet 1 tab PO MOWEFR 07/30/22 07/30/22 07/29/22 History rosuvastatin 5 mg tablet 1 tab PO DAILY 07/30/22 07/30/22 07/29/22 History sertraline 25 mg tablet 1 tab PO DAILY 07/30/22 07/30/22 07/29/22 History tamsulosin 0.4 mg capsule 1 cap PO DAILY 07/30/22 07/30/22 07/29/22 History Physical Exam Vital Signs and Narrative: Vital Signs: Last Vital Signs Temp 97.9 F 07/30/22 15:03 Pulse 85 07/30/22 15:03 Resp 19 07/30/22 15:03 BP 140/98 H 07/30/22 15:03 Pulse Ox 93 07/30/22 15:03 O2 Del Method 07/30/22 15:03 O2 Flow Rate 2 07/30/22 06:00 BMI result Body Mass Index 24.8 Const: Other: General awake alert, in no acute distress. anicteric sclera Neck supple no JVD. CVS irregular rate rhythm, Respiratory lungs clear to auscultation, no respiratory distress, no rales, no wheeze, no rhonchi. Gastrointestinal abdomen soft, nontender, bowel sounds audible, no guarding , no rigidity. Extremities no edema. Neuro moving all 4 extremity ,speech clear. Skin no rash psych poor insight Results Labs CBC and Chem 7: 07/30/22 00:46 07/30/22 00:46 Labs: Laboratory Results - last 24 hr 07/30/22 07/30/22 07/30/22 00:46 00:46 00:46 MCV 90.4 MCH 30.5 MCHC 33.7 RDW 15.3 Plt Count 182 MPV 10.0 Immature Gran % (Auto) 0.2 Neut % (Auto) 85.9 H Lymph % (Auto) 6.8 L [place] % (Auto) 5.9 Eos % (Auto) 0.6 Baso % (Auto) 0.6 Lymph # (Auto) 0.4 L [place] # (Auto) 0.4 Eos # (Auto) 0.0 Baso # (Auto) 0.0 Abs Immat Gran (auto) 0.01 Absolute Neuts (auto) 5.5 Absolute Nucleated RBC 0.000 Nucleated RBC % (auto) 0.0 Anion Gap 19 Estim Creat Clear Calc 50.1 Estimated GFR > 60 Random Glucose 164 H Calcium 8.8 Troponin I High Sens 41.1 H B-Natriuretic Peptide 3351 H COVID-19 (DOUG) COVID-19 Clin Com 07/30/22 07/30/22 05:03 06:38 MCV MCH MCHC RDW Plt Count MPV Immature Gran % (Auto) Neut % (Auto) Lymph % (Auto) [place] % (Auto) Eos % (Auto) Baso % (Auto) Lymph # (Auto) [place] # (Auto) Eos # (Auto) Baso # (Auto) Abs Immat Gran (auto) Absolute Neuts (auto) Absolute Nucleated RBC Nucleated RBC % (auto) Anion Gap Estim Creat Clear Calc Estimated GFR Random Glucose Calcium Troponin I High Sens 69.0 H D B-Natriuretic Peptide COVID-19 (DOUG) Negative COVID-19 Clin Com See Note Imaging Radiologist's Impressions: Impressions Chest X-Ray 07/30/22 00:37 IMPRESSION: Finding suggestive of developing vascular congestion. Small left pleural effusion. Mild bibasilar opacities could be due to atelectasis or developing consolidation in this setting. Assessment and Plan (1) Congestive heart failure: Status: Acute (2) Atrial fibrillation: Status: Acute Plan 87-year-old gentleman lives at home with family came to [facility] with symptoms of shortness of breath with no associated chest pain, no palpitation due to advanced dementia patient is unable to provide any detail history in the ER noted to have elevated BNP, mildly elevated troponin but flat, chest x-ray showed mild bi basilar opacities could be due to atelectasis or developing consolidation, developing vascular congestion and small left pleural effusion patient is being admitted to [facility] with a diagnosis of acute CHF exacerbation. Acute CHF exacerbation unknown EF, question related to AFib with RVR patient denies chest pain mildly elevated troponin, EKG with nonspecific T-wave changes CHF question related to AFib, will obtain echocardiogram will treat with low-dose IV Lasix 20 mg b.i.d. follow BMP and BNP follow echo report monitor daily weight I's and O's obtain Cardio consultation if no improvement in symptoms Advanced dementia unspecified question Alzheimer's - on Zoloft chronic persistent atrial fibrillation continue Eliquis and to Paul 25 mg b.i.d. benign prostate hypertrophy continue Proscar and Flomax prolong QT will check home medications and repeat EKG follow electrolytes and magnesium code status DNR DNI as per healthcare proxy patients son patient will need 2 night inpatient stay due to acute congestive heart failure requiring IV diuretics and further workup including an echocardiogram Quality Stroke Does the patient have a stroke diagnosis?: No VTE Prior VTE?: No VTE Risk Level:: Medical - moderate - high VTE Device Contraindication: Treatment Not Indicated VTE Drug Contraindication: N/A - Med Ordered
[2022-07-30] MEDS: 0.9 % Sodium Chloride Flush 3 ML SYRINGE IVFLUSH ×2 (18:04→21:02)
[2022-07-30] MEDS: Melatonin 3 MG TABLET PO (21:02)
[2022-07-30] MEDS: Atorvastatin Calcium 10 MG TABLET PO (21:02)
--- NOTE | 2022-07-30 21:07 | PC.NURSE ---
Pt confused. Hx dementia. LS-dim. No cough or sob noted. Pt had 12 beat run VT-Dr Barry notified and ordered stat labs. Pt c/o GUILLORY at that time but denies GUILLORY at present. Pt unable to follow directions and stay in bed. Bed alarm on and camera on. Pt jumping up every few minutes. Nursing machine records units supervisor called for requests of sitter X2. Sitter sent and at bedside for patient safety. Melatonin given. Pt able to use urinal if placed in position, otherwise pt incontinent of urine. Denies pain. Will continue to monitor.
[2022-07-30 21:18] LABS: Anion Gap 17 (12-20); Blood Urea Nitrogen 24 mg/dL (9-16); Calcium 8.9 mg/dL (8.4-10.2); Carbon Dioxide 24 mmol/L (22-29); Chloride 105 mmol/L (96-108); Estimated Glomerular Filt Rate 55; Glucose Random 180 mg/dL (60-115); Potassium 3.7 mmol/L (3.3-5.1); Sodium 142 mmol/L (135-145)
--- NOTE | 2022-07-31 02:33 | PC.NURSE ---
PT PULL UP WAS SOILEDAND PT WAS TRYING TO GET OUT OF BED . PT CLEANED AND NEW PULL UP PUT ON . PT GIVEN WARM BLANKET AND REPOSITIONED
--- NOTE | 2022-07-31 02:51 | PC.NURSE ---
Pt's son, Roman called earlier upset that ED didn't know where his father was and wanted to know what was going on with his dad. He was given an update on his father and his condition. The son wanted to come and sit with him for awhile (he was told his father had a sitter as well as a bed alarm and a camera for safety). I asked the nursing table games dual rate supervisor and she ok'd him coming in. Patient was here from approximately 2200 till around 0100. I had to ask him and the sitter to lower their voices as they were talking and keeping other patients (as well as his father) up. Sitter at pt's bedside. Will continue to monitor.
[2022-07-31 04:16] VITALS: BP 154/101; PULSE 92; RESP 18; TEMP 36.4
--- NOTE | 2022-07-31 04:19 | PC.NURSE ---
PT PULL UP SOILED. PT STOOD UP TO CHANGE, PULL UP WITH 1X ASSISTANCE . LINEN/PAD CHANGED WHILE PT CLEANED . PT GIVEN WARM BLANKET AND RESTING IN BED
--- NOTE | 2022-07-31 05:30 | PC.NURSE ---
PT SOILED WITH URINE. ANA LUISA MATAMOROS APPROVED PT BEING PUT ON A [place] FOR URINE . PT GIVEN JESSICA CARE AND [place] APPLIED.
--- NOTE | 2022-07-31 06:07 | PC.NURSE ---
PT CHECKED TO MAKE SURE [place] IS STILL INTACT. [place] STILL INTACT PT REPOSITIONED TO BACK AND VERBAL REASSURANCE GIVEN
--- NOTE | 2022-07-31 07:00 | CA_ITS ---
Transthoracic Echocardiogram Patient (Last, First, Middle): Susan Haynes R Gender: Male Date of : 1935 Age: 87 Procedure Date: 07/31/2022 Procedure Type: Transthoracic Echocardiogram Location: ER Height: 182.88 cm Weight: 83.01 kg BSA: 2.05 m2 Heart Rate: bpm BP: 146 / 95 mmHg Supervisor Cartography: SB Referring MD: Dariel Roy MD Supervisor Quality Control: Thomas Payne MD Symptoms: chf Study Quality: Adequate ECG Rhythm: Atrial Fibrillation Conclusions: - 1. At least moderate LV systolic dysfunction with LVEF of 35 40% with grade 2 diastolic dysfunction with elevated filling pressure 2. Moderate biatrial enlargement 3. Severe aortic stenosis with low-flow 4. Moderately elevated at good systolic pressure with significantly elevated right atrial pressures 5. No pericardial effusion Findings Left Ventricle Normal left ventricular cavity size. There is mildly increased left ventricular wall thickness. The left ventricular systolic function is moderately decreased. The visually estimated ejection fraction is between 35 40%. Regional wall motion abnormalities can not be excluded due to suboptimal endocardial definition. There is paradoxical septal motion consistent with a right ventricular pacemaker. Spectral Doppler is indicative of a pseudonormal filling pattern. Elevated left atrial and left ventricular end-diastolic pressures. E/E prime ratio is >15, consistent with elevated filling pressures. Right Ventricle Normal right ventricular cavity size. There is a pacemaker wire seen in the right ventricle. Atria The left atrium is moderately dilated. There is lipomatous hypertrophy of the interatrial septum. Interatrial shunt cannot be excluded. The right atrium is moderately dilated. Aortic Valve There is moderate calcification of the aortic valve. There is moderate thickening of the aortic valve. There is severe aortic valve stenosis. The peak aortic gradient is 59 mmHg.The mean gradient is 37 mmHg. The aortic valve area is 0.54 cm2. There is trace (trivial) aortic valve regurgitation. Mitral Valve There is mild anterior and posterior mitral leaflet thickening. There is mild mitral annular calcification. There is mild mitral valve regurgitation. There is no mitral valve stenosis. Pulmonic Valve The pulmonic valve is likely normal. There is mild pulmonic valve regurgitation. Tricuspid Valve Normal tricuspid valve structure. There is mild tricuspid valve regurgitation. Significantly elevated right atrial pressure. Moderate pulmonary hypertension is present. Great Vessels The pulmonary artery was not well visualized. There is mild dilatation of the ascending aorta measuring 3.90 cm. Venous The inferior vena cava is severely dilated and does not collapse with inspiration. Pericardium/Pleural There is no evidence of pericardial effusion. Prior Study Comparison No prior study available for comparison. Measurements 2D Linear Measurements IVSd: 1.48 0.6-0.9/0.6-1.0 cm LVIDd: 4.90 3.9-5.3/4.2-5.9 cm LVIDd Index: 2.39 2.4-3.2/2.2-3.1 cm/m2 LVIDs: 4.20 2.0-3.6 cm LVPWd: 1.22 0.7-1.1 cm LA Diam: 4.70 2.7-3.8/3.0-4.0 cm LAIDs Index: 2.29 1.5-2.3 cm/m2 LV Mass: 334.18 67-162/88-224 g LV Mass Index: 163.01 43-95/49-115 g/m2 LVOT Diam: 2.30 3.0+(-)1.3 cm 2D Systolic Function EF 4C: 42.40 >55% EF 2C: 16.40 >55% Mitral Valve MV Pk E: 0.81 E'Medial: 4.98 E/E' Med: 16.20 Aortic Valve AoV Pk Eduin: 3.84 AoV Mn Eduin: 2.89 AoV VTI: 0.84 AoV Pk Grad: 59.00 Aov Mn Grad: 37.00 JACKELIN Cont.VTI: 0.54 LVOT LVOT Pk Eduin: 0.63 LVOT Mn Eduin: 0.41 LVOT VTI: 0.11 LVOT Pk Grad: 2.00 LVOT Mn Grad: 1.00 LVOT Diam: 2.30 LVOT Area: 4.15 Diastolic Function MV Pk E: 0.81 E'Medial: 4.98 E/E' Med: 16.20 Right Ventricle TAPSE (mm): 14.60 TVS' Eduin: 7.80 Tricuspid Valve TR Pk Eduin: 3.23 TR Pk Grad: 42.00 RA Press: 15.00 RVSP: 57.00 Great Vessels Aorta Sinus of Valsalva: 3.20 2.0-3.5 cm Ao Asc: 3.90 2.1-3.4 cm Pulmonary Valve PV Pk Eduin: 0.72 Peak PV Grad: 2.00 Updated in Other Vendor System with Status of Final Thomas Payne MD electronically signed on 07/31/2022 2:47:38 PM with status of Final
[2022-07-31 07:41] LABS: Appearance Urine Clear; Color Urine Yellow; Glucose Urine UA Negative (Negative); Leukocyte Esterase Urine Moderate (2+) (Negative); Nitrite Urine Negative (Negative); PH 7.5 (5.0-9.0); UMIC TRIGGER UACC YES; Urine Blood Moderate (2+) (Negative); Urine Ketones Negative (Negative); Urine Protein Trace mg/dL (Neg-Trace)
[2022-07-31 07:46] LABS: Bacteria Urine None Seen (None Seen); Hyaline Casts Urine 0-2 /LPF (0-2); Squamous Epithelial Cell Urine 0-2 /HPF (0-2); UACC Culture Trigger YES; WBC Urine >50 /HPF (0-5)
[2022-07-31 08:05] VITALS: BP 146/95; PULSE 80; RESP 18; TEMP 36.6; O2SAT 92
[2022-07-31 08:34] LABS: Anion Gap 15 (12-20); Blood Urea Nitrogen 23 mg/dL (9-16); Carbon Dioxide 28 mmol/L (22-29); Chloride 105 mmol/L (96-108); Cholesterol 164 mg/dL; Creatinine Clr Calc Pharmacy 50.5; Estimated Glomerular Filt Rate > 60; Glucose Random 122 mg/dL (60-115); HDL Cholesterol 62 mg/dL; LDL Cholesterol Calculated 86 mg/dl; Potassium 3.4 mmol/L (3.3-5.1); Sodium 145 mmol/L (135-145); Triglycerides 80 mg/dL
[2022-07-31 08:52] LABS: B Type Natriuretic Peptide 3699 pg/mL (<100)
--- NOTE | 2022-07-31 09:00 | MHC.CM.PN ---
Patient has a diagnosis of Advanced Dementia; CM spoke with Son/Roman @ [phone] and addressed IMM with him (original will be mailed certified letter to Roman and a copy will be placed on the chart). Patient lives in a house with his Son and he uses a walker to assist with mobility. Home self care is the goal and CM has initiated and will follow for dc planning. Patient has received Moderna/Covid vax X4 and the PCP is Dr. Anmol De La Rosa.Roman is not aware of a formal HCP ever being completed.
[2022-07-31] MEDS: Finasteride 5 MG TABLET PO (09:43)
[2022-07-31] MEDS: Furosemide 20 MG/2 ML VIAL IVPUSH ×2 (09:43→16:33)
[2022-07-31] MEDS: atenoloL 25 MG TABLET PO (09:44)
[2022-07-31] MEDS: Tamsulosin HCL 0.4 MG CAPSULE PO (09:44)
[2022-07-31] MEDS: Sertraline HCL 25 MG TABLET PO (09:44)
[2022-07-31] MEDS: Apixaban 5 MG TABLET PO (09:44)
[2022-07-31] MEDS: Aspirin Enteric Coated 81 MG TABLET.DR PO (09:44)
[2022-07-31] MEDS: Metoprolol Tartrate 25 MG TABLET PO (11:03)
[2022-07-31 11:23] VITALS: BP 148/118; PULSE 89; RESP 17; TEMP 36.7; O2SAT 95
[2022-07-31 11:36] VITALS: BP 140/80
[2022-07-31 15:51] VITALS: BP 149/103; PULSE 88; RESP 22; TEMP 36.3; O2SAT 95
--- NOTE | 2022-07-31 15:56 | PM.DS ---
DS: Providers Provider Date of Service: 08/09/22 Date of admission: 07/30/22 10:55 Primary care physician: Unknown Physician DS: Diagnosis Discharge Diagnosis (1) Congestive heart failure: Status: Resolved (2) Atrial fibrillation: Status: Inactive DS: Summary Hospital Course Hospital Course: Chief Complaint: ? Shortness of breath ?87-year-old gentleman with past medical history significant for advanced dementia, atrial fibrillation on Eliquis, status post pacemaker placement, history of congestive heart failure with unknown EF? brought into [facility] with acute onset of shortness of breath patient is unable to provide meaningful history due to advanced dementia, therefore called patient's son? Roman Haynes? he is the healthcare proxy and lives? with patient according to him patient threw up his Cereal ?yesterday morning which she fell secondary to history of dry mouth recently started on biotin mouthwash, rest of the day he was doing fine at around 20:00 last night patient went to bed since he was feeling tired and at 10:30 son noted that patient is short of breath he denies associated fever chills no chest discomfort no palpitations but since his symptoms persisted he brought him to [facility] in the ER patient was noted to be in atrial fibrillation with rapid ventricular response his BNP was elevated 3351, his troponin was 16 9 chest x-ray showed small left pleural effusion and pulmonary congestion patient treated in the emergency room with 1 dose of IV Lasix 20 mg and nitro patch, at present patient is feeling better. 87-year-old gentleman lives at home with family came to [facility] with symptoms of shortness of breath with no associated chest pain, no palpitation due to advanced dementia patient is unable to provide any detail history in the ER noted to have elevated BNP, mildly elevated troponin but flat, chest x-ray? showed mild bi basilar opacities could be due to atelectasis or developing consolidation, developing vascular congestion and small left pleural effusion patient is being admitted to [facility] with a diagnosis of acute CHF exacerbation. ?Acute CHF exacerbation?patient admitted to medical floor and noted to have AFib with RVR, patient treated with IV Lasix 20 mg b.i.d. an echocardiogram was obtained that showed EF 35-40% regional wall motion abnormalities could not be excluded due to sub optimal endocardial definition , severe aortic valve stenosis that was known from before, patient responded well to diuretics felt better, his troponins were flat since patient was clinically doing better, he is being discharged home, his home dose of Lasix has been increased to 40 mg on Thursday and Saturdays, his atenolol has been replaced by metoprolol 25 mg b.i.d. EKG showed nonspecific T-wave changes and prolonged QTC patient electrolytes and magnesium are normal recommend close outpatient follow-up with PCP ?Advanced dementia unspecified question Alzheimer's? - continue Zoloft ?chronic persistent atrial fibrillation continue Eliquis and metoprolol 25 mg b.i.d. ?benign prostate hypertrophy continue Proscar and Flomax Time Spent with Patient Time attestation: Total time spent providing and/or coordinating discharge services: Discharge coordination time: Greater than 30 minutes Quality: Safe Use of Opioids Does Pt have an Active Cancer Diagnosis on the Problem List?: No Quality: Stroke Does the patient have a stroke diagnosis?: No Physical Exam Vital Signs: Vital Signs: Last Vital Signs Temp 97.3 F 07/31/22 15:51 Pulse 88 07/31/22 15:51 Resp 22 H 07/31/22 15:51 BP 149/103 H 07/31/22 15:51 Pulse Ox 95 07/31/22 15:51 O2 Del Method 07/31/22 15:51 O2 Flow Rate 2 07/30/22 06:00 BMI result Body Mass Index 24.8 Const: Other: General? awake alert, in no acute distress.? anicteric sclera Neck? supple no JVD. CVS? irregular rate rhythm, Respiratory lungs clear to auscultation, no respiratory distress, no rales, no wheeze, no rhonchi. Gastrointestinal abdomen soft, nontender, bowel sounds audible, no guarding , no rigidity. Extremities no edema. Neuro? moving all 4 extremity ,speech clear. Skin no rash psych poor insight DS: Data Data Completed and Pending Labs on day of discharge: Laboratory Results - last 24 hr 07/30/22 07/31/22 07/31/22 20:42 07:03 07:54 Sodium 142 145 Potassium 3.7 3.4 Chloride 105 105 Carbon Dioxide 24 28 Anion Gap 17 15 BUN 24 H 23 H Creatinine 1.24 1.13 Estim Creat Clear Calc 46.0 50.5 Estimated GFR 55 > 60 Random Glucose 180 H 122 H Calcium 8.9 9.0 Magnesium 2.0 B-Natriuretic Peptide Triglycerides 80 Cholesterol 164 LDL Cholesterol, Calc 86 HDL Cholesterol 62 Urine Color Yellow Urine Appearance Clear Urine pH 7.5 Ur Specific [place] 1.010 Urine Protein Trace Urine Glucose (UA) Negative Urine Ketones Negative Urine Blood Moderate (2+) H Urine Nitrite Negative Ur Leukocyte Esterase Moderate (2+) H Urine RBC 11-20 H Urine WBC >50 H Ur Squamous Epith Cells 0-2 Urine Bacteria None Seen Hyaline Casts 0-2 07/31/22 07:54 Sodium Potassium Chloride Carbon Dioxide Anion Gap BUN Creatinine Estim Creat Clear Calc Estimated GFR Random Glucose Calcium Magnesium B-Natriuretic Peptide 3699 H Triglycerides Cholesterol LDL Cholesterol, Calc HDL Cholesterol Urine Color Urine Appearance Urine pH Ur Specific [place] Urine Protein Urine Glucose (UA) Urine Ketones Urine Blood Urine Nitrite Ur Leukocyte Esterase Urine RBC Urine WBC Ur Squamous Epith Cells Urine Bacteria Hyaline Casts Discharge Plan Discharge Anticipated Discharge Date/Time: 07/31/22 15:58 Patient Disposition: Home, Self-Care Discharge Diagnosis: acute chf Referrals: Physician,Unknown J [Physician] - 1 Week Discharge Medications: New metoprolol tartrate 25 mg Tablet 25 mg PO BID Qty: 60 0RF Protocol: Hold for SBP/HR < HOLD for SBP < : 90 HOLD for HR < : 60 furosemide [Lasix] 20 mg tablet 20 mg PO DAILY Qty: 30 0RF Continued tamsulosin 0.4 mg capsule 1 cap PO DAILY sertraline 25 mg tablet 1 tab PO DAILY finasteride 5 mg tablet 1 tab PO DAILY rosuvastatin 5 mg tablet 1 tab PO DAILY ferrous gluconate 324 mg (38 mg iron) tablet 1 tab PO Q OTHER DAY Eliquis 5 mg tablet 1 tab PO BID aspirin 81 mg Tablet,Delayed Release (Dr/Ec) 81 mg PO DAILY Discontinued furosemide 40 mg tablet 1 tab PO MOWEFR atenolol 25 mg tablet 1 tab PO BID Discharge Orders: Discharge Order (Routine); Ordered 07/31/22 Ordered By: Dariel Roy Diet: Low fat, low cholesterol Activity on Discharge: As tolerated Stand Alone Forms: Patient Portal Discharge page Care Plan Goals: Acute congestive heart failure resolved take Lasix 20 mg 1 tablet by mouth daily, atenolol replaced by metoprolol 25 mg b.i.d. continue all home medications as before Stop Lasix 40 mg Thursday and Thursday Return to check with recurrent symptoms of shortness of breath, chest pain lightheadedness, Echo showed EF 35-40% with grade 2 diastolic dysfunction, moderate biatrial enlargement, severe aortic stenosis with low-flow Health Concerns: As above Plan of Treatment: Outpatient follow-up with primary insurance underwriter Dr. Woody , continue home medications as ordered Assessment: as above Discharge Date/Time: 07/31/22 18:07
--- NOTE | 2022-07-31 16:00 | MHC.CM.PN ---
Patient has been medically cleared for dc to home today, self care
== END 2022-07-31 18:07 | disposition home or self-care (01) | DRG 292 ==
LOC: HO.ED 06:33 → HO.EDOVER 11:01
PROVIDERS: Internal Medicine; Admitting Provider Hospitalist; Emergency Provider Internal Medicine; PCP Internal Medicine; Visit Provider Hospitalist
DX: I11.0 Hypertensive heart disease with heart failure (principal); I48.19 Other persistent atrial fibrillation; Z66 Do not resuscitate; E78.5 Hyperlipidemia, unspecified; R94.31 Abnormal electrocardiogram [ECG] [EKG]; N40.0 Benign prostatic hyperplasia without lower urinary tract symptoms; G30.9 Alzheimer's disease, unspecified; F02.80 Dementia in other diseases classified elsewhere, unspecified severity, without behavioral disturbance, psychotic disturbance, mood disturbance, and anxiety; Z20.822 Contact with and (suspected) exposure to COVID-19; Z95.0 Presence of cardiac pacemaker; Z88.5 Allergy status to narcotic agent; Z88.6 Allergy status to analgesic agent; Z79.01 Long term (current) use of anticoagulants; Z79.82 Long term (current) use of aspirin; Z79.899 Other long term (current) drug therapy
CPT/HCPCS: 36415; 71045; 80048; 80061; 81001; 83735; 83880; 84484; 85025; 87086; 87635; 93005; 93306; 99285; J1940; Q9957